=== PATIENT | female | born 1955 | race Caucasian/White ===

== ENCOUNTER 2020-06-15 04:47 | Emergency (ER) | payer BC ==
[~2020-06-15] VITALS: Ht 152.4 cm; Wt 49.5 kg
[2020-06-15 05:57] LABS: BASO % 0.3 % (0.0-1.0); EOS # 0.1 10^3/uL (0.0-0.5); EOS % 0.8 % (0.0-3.0); HEMATOCRIT 40.8 % (36.0-47.0); HEMOGLOBIN 13.9 g/dl (12.0-15.5); LYMPH # 1.7 10^3/uL (1.5-5.0); LYMPH % 28.3 % (24.0-44.0); MEAN CORPUSCULAR HEMOGLOBIN 31.7 pg (27.0-33.0); MEAN CORPUSCULAR HGB CONC 34.1 g/dl (32.0-36.5); MEAN CORPUSCULAR VOLUME 93.2 fl (80.0-96.0); MONO # 0.4 10^3/uL (0.0-0.8); NEUTROPHILS # 3.9 10^3/uL (1.5-8.5); NEUTROPHILS % 63.3 % (36.0-66.0); PLATELET COUNT, AUTOMATED 284 10^3/uL (150-450); RED BLOOD COUNT 4.38 10^6/uL (4.00-5.40); WHITE BLOOD COUNT 6.1 10^3/uL (4.0-10.0)
[2020-06-15 06:27] LABS: BLOOD UREA NITROGEN 11 MG/DL (7-18); CALCIUM LEVEL 9.2 MG/DL (8.8-10.2); CARBON DIOXIDE LEVEL 27 MEQ/L (21-32); CHLORIDE LEVEL 108 MEQ/L (98-107); CK-MB VALUE MASS 3.5 NG/ML (<3.6); CPK CREATINE PHOSPHOKINASE 99 U/L (26-192); CREATININE FOR GFR 0.89 MG/DL (0.55-1.30); GLOMERULAR FILTRATION RATE > 60.0 (>45); GLUCOSE, FASTING 98 MG/DL (70-100); MAGNESIUM LEVEL 2.1 MG/DL (1.8-2.4); MB/CK RELATIVE INDEX 3.54 (< OR =4); SODIUM LEVEL 140 MEQ/L (136-145); TROPONIN I < 0.02 NG/ML (< 0.10)
[2020-06-15] MEDS ORDERED: PANTOPRAZOLE 40MG VIAL (C9113 PER 1) IV ONE (06:30)
[2020-06-15] MEDS ORDERED: LORazepam 2 MG/ML VIAL IV STA (06:35)
[2020-06-15 06:44] LABS: ALT/SGPT 20 U/L (12-78); BILIRUBIN,DIRECT 0.2 MG/DL (0.0-0.2); BILIRUBIN,TOTAL 0.4 MG/DL (0.2-1.0); LIPASE 118 U/L (73-393); TOTAL PROTEIN 6.8 GM/DL (6.4-8.2)
[2020-06-15] MEDS ORDERED: GI COCKTAIL 50ML BTL(HYOSCYAMINE/MAALOX/LIDOCAINE VISCOUS)(1:3:1) PO ONE (06:45)
[2020-06-15] MEDS ORDERED: ISOVUE-370 76% 100ML VIAL As Ordered ONE (06:47)
--- NOTE | 2020-06-15 07:43 | REPVR ---
PROCEDURE INFORMATION: Exam: CT Angiography Chest With Contrast Exam date and time: 06/15/2020 6:57 AM Age: 64 years old Clinical indication: Chest pain; Additional info: Cp, palpitations and L groin pain TECHNIQUE: Imaging protocol: Computed tomographic angiography of the chest with intravenous contrast. 3D rendering (Not supervised by radiologist): MIP and/or 3D reconstructed images were created by the technologist. Radiation optimization: All CT scans at this facility use at least one of these dose optimization techniques: automated exposure control; mA and/or kV adjustment per patient size (includes targeted exams where dose is matched to clinical indication); or iterative reconstruction. Contrast material: ISOVUE 370; Contrast volume: 100 ml; Contrast route: INTRAVENOUS (IV); COMPARISON: No relevant prior studies available. FINDINGS: Pulmonary arteries: No pulmonary embolus in the opacified pulmonary arteries. Aorta: Uniform opacification and normal caliber of the thoracic aorta. Lungs: Hyperinflation and mild interstitial prominence. Pleural space: No pleural effusion. Heart: Mild left ventricular hypertrophy. Lymph nodes: No enlarged lymph nodes. Bones/joints: Mild degenerative change . Soft tissues: Fat containing Bochdalek's hernia in the inferior left hemithorax. IMPRESSION: 1. No pulmonary embolus in the opacified pulmonary arteries. 2. Additional findings as described above. Electronically signed by: Mateusz Smith On 06/15/2020 07:43:09 AM
--- NOTE | 2020-06-15 07:48 | REPVR ---
PROCEDURE INFORMATION: Exam: CT Angiography Abdomen and Pelvis With Contrast Exam date and time: 06/15/2020 6:57 AM Age: 64 years old Clinical indication: Abdominal pain; Localized; Lower; Additional info: Cp, palpitations and L groin pain, llq ttp, diarrhea TECHNIQUE: Imaging protocol: Computed tomographic angiography of the abdomen and pelvis with intravenous contrast material. 3D rendering (Not supervised by radiologist): MIP and/or 3D reconstructed images were created by the technologist. Radiation optimization: All CT scans at this facility use at least one of these dose optimization techniques: automated exposure control; mA and/or kV adjustment per patient size (includes targeted exams where dose is matched to clinical indication); or iterative reconstruction. Contrast material: ISOVUE 370; Contrast volume: 100 ml; Contrast route: INTRAVENOUS (IV); COMPARISON: No relevant prior studies available. FINDINGS: Heart: Pericardial effusion. Vascular: Normal caliber of the abdominal aorta. Patency and normal caliber of the celiac, mesenteric, renal, and iliac arteries. Vascular calcification. Liver: 7 mm hepatic hemangioma and fatty infiltration of the liver. Gallbladder and bile ducts: Cholelithiasis and mild gallbladder wall thickening. Pancreas: Borderline pancreatic ductal dilatation without focal pancreatic mass. Spleen: No splenomegaly. Adrenals: Unremarkable adrenals. Kidneys and ureters: Normal renal morphology. No hydronephrosis. Stomach and bowel: Wall thickening in the nondistended stomach. Small bowel dilatation without a transition zone. Prominent stool, in a pattern of constipation. Diverticula, without pericolonic inflammation. Appendix: Patency and normal caliber of the celiac, mesenteric, renal, and iliac arteries. Vascular calcification. No acute appendicitis. Intraperitoneal space: No significant free fluid. Lymph nodes: Subcentimeter lymph nodes. Bladder: Bladder dilatation. Reproductive: Unremarkable as visualized. Bones/joints: Degenerative change , disc bulging, and vacuum discs. Soft tissues: Small umbilical hernia. IMPRESSION: 1. Cholelithiasis and mild gallbladder wall thickening. 2. Wall thickening in the nondistended stomach. 3. Additional findings as described above. Electronically signed by: Mateusz Smith On 06/15/2020 07:48:03 AM
[2020-06-15 08:59] LABS: CK-MB VALUE MASS 3.1 NG/ML (<3.6); MB/CK RELATIVE INDEX 3.41 (< OR =4); TROPONIN I 0.02 NG/ML (< 0.10)
[2020-06-15] MEDS ORDERED: OMEP40CA97 PO (11:10)
[2020-06-15] MEDS ORDERED: CARA1TAB6 PO (11:10)
[2020-06-15 11:22] VITALS: BP 125/70
--- NOTE | 2020-06-15 15:43 | ED PDOC ---
Post-Departure Follow-Up dr conway faxed formal report of cta abd/p for fu Shady Goldberg MD Jun 15, 2020 15:43
--- NOTE | 2020-06-24 10:34 | ECGEPIP ---
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
== END 2020-06-15 11:24 | disposition home or self-care (01) ==
LOC: M ED 04:47
DX: K29.70 Gastritis, unspecified, without bleeding (principal); F43.0 Acute stress reaction; R00.2 Palpitations; K80.80 Other cholelithiasis without obstruction; Z79.899 Other long term (current) drug therapy
CPT/HCPCS: 71275; 74174; 80048; 80076; 81001; 82550; 82553; 83690; 83735; 84484; 85025; 93005; 93041; 94760; 96374; 96375; 99285; C9113; J2060; Q9967

== ENCOUNTER 2024-05-10 17:46 | Emergency (ER) | payer SELFPAY ==
[~2024-05-10 17:46] MED LIST: CARA1TAB6 PO; OMEP40CA4 PO
== END 2024-05-10 22:09 | disposition expired ==
LOC: EDBD 17:46 → M ED 17:46
DX: I46.9 Cardiac arrest, cause unspecified (principal); I47.20 Ventricular tachycardia, unspecified; I49.01 Ventricular fibrillation; F10.10 Alcohol abuse, uncomplicated